=== PATIENT | male | born 1970 | race Caucasian/White ===

== ENCOUNTER 2017-02-03 05:25 | Emergency (ER) | payer BC, OTHER ==
[2017-02-03] MEDS ORDERED: SODIUM CHLORIDE 0.9% 1,000 ML IV ONE (05:57)
[2017-02-03] MEDS ORDERED: MAG HYDROX/AL HYDROX/SIMETH 30 ML UDC PO STA (06:32)
[2017-02-03] MEDS ORDERED: LIDOCAINE VISCOUS 2% 15 ML UDC MM STA (06:32)
[2017-02-03] MEDS ORDERED: MAG HYDROX/AL HYDROX/SIMETH 30 ML UDC ONE (06:34)
[2017-02-03] MEDS ORDERED: LIDOCAINE VISCOUS 2% 15 ML UDC MM ONE (06:34)
[2017-02-03] MEDS ORDERED: PANTOPRAZOLE 40 MG VIAL IVP STA (07:00)
[2017-02-03] MEDS ORDERED: PANTOPRAZOLE 40 MG VIAL ONE (07:03)
== END 2017-02-03 08:02 | disposition home or self-care (01) ==
DX: K20.9 Esophagitis, unspecified (principal); K29.60 Other gastritis without bleeding; T39.391A Poisoning by other nonsteroidal anti-inflammatory drugs [NSAID], accidental (unintentional), initial encounter; E86.0 Dehydration
CPT/HCPCS: 36415; 71020; 80053; 83690; 84484; 85025; 93005; 93010; 96361; 96374; 99284; A9270

== ENCOUNTER 2022-02-02 00:25 | Outpatient (CLI) | payer SELFPAY | END 2022-02-02 00:26 | disposition EMS.NT | LOC: EMS 00:25 | DX: I10 Essential (primary) hypertension (principal) ==